=== PATIENT | female | born 1955 | race Hispanic/Latino ===

== ENCOUNTER 2017-04-15 15:05 | Emergency (ER) | payer BC ==
[2017-04-15 15:05] VITALS: BMI 22.2
[2017-04-15] MEDS ORDERED: Sodium Chloride 0.9% 1,000 ML IV STA ×2 (15:20→18:20)
--- NOTE | 2017-04-15 15:24 | ED PDOC ---
Arrival/HPI - General Historian: Patient - History of Present Illness Time/Duration: 24 hours Symptom Onset: Gradual Symptom Course: Unchanged Severity Level: Moderate Activities at Onset: Rest Context: Home - General Time Seen by Provider: 04/15/17 15:06 - History of Present Illness Narrative History of Present Illness (Text): 04/15/17 15:15 Allegra Hernandez is a 62 year old female, whose past medical history includes COPD and an esophageal ulcer, who presents to the emergency department complaining of constant nausea and vomiting since yesterday. Patient states that she has experienced associated chills, diarrhea, and dehydration. Patient notes that her vomiting may be due to the ulcer in her esophagus. Patient denies any fevers or any other complaint at this time. PMD: Dr. Webb Chief Accountant: Dr. 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-16 - Neurological Hx Neurological Disorder: No Hx Paralysis: No - HEENT Hx HEENT Disorder: No - Renal Hx Renal Disorder: Yes Hx Kidney Stones: Yes (With surgery) - Endocrine/Metabolic Hx Endocrine Disorders: No - Hematological/Oncological Hx Blood Disorders: No Hx Blood Transfusions: No Hx Blood Transfusion Reaction: No - Integumentary Hx Dermatological Disorder: No - Musculoskeletal/Rheumatological Hx Musculoskeletal Disorders: Yes (BULGING AND HERNIATED DISK LOWER BACK) - Gastrointestinal Hx Gastrointestinal Disorders: Yes Hx Gastroesophageal Reflux: Yes Other/Comment: Esophageal ulcer - Genitourinary/Gynecological Hx Genitourinary Disorders: No - Psychiatric Hx Psychophysiologic Disorder: Yes Hx Anxiety: Yes Hx Emotional Abuse: No Hx Physical Abuse: No Hx Substance Use: No - Surgical History Hx Appendectomy: Yes Hx Orthopedic Surgery: Yes (back; R knee) Other/Comment: kidney stone - Anesthesia Hx Anesthesia Reactions: Yes ("GETS SICK IF UNDER ANESTHESIA TOO LONG"VOMITING) Hx Malignant Hyperthermia: No - Suicidal Assessment Feels Threatened In Home Enviroment: No Family/Social History - Physician Review Nursing Documentation Reviewed: Yes Family/Social History: No Known Family HX Smoking Status: Light Smoker < 10 Cigarettes Daily Hx Alcohol Use: No Hx Substance Use: No Allergies/Home Meds Allergies/Adverse Reactions: Allergies Iodine and Iodide Containing Produc Allergy (Verified 04/15/17 15:12) ANAPHYLAXIS Home Medications: Home Meds Medication Instructions Recorded Confirmed Alprazolam [Xanax] 0.5 mg PO HS PRN 04/21/15 04/15/17 Pantoprazole [Protonix EC Tab] 20 mg PO DAILY 04/21/15 04/15/17 oxyCODONE [oxyCODONE Immediate 20 mg PO Q6 04/15/17 04/15/17 Release Tab] Review of Systems - Physician Review All systems were reviewed & negative as marked: Yes - Review of Systems Constitutional: Other (Chills). absent: Fevers Eyes: absent: Vision Changes ENT: absent: Hearing Changes Respiratory: absent: SOB Cardiovascular: absent: Chest Pain Gastrointestinal: Diarrhea, Nausea, Vomiting. absent: Abdominal Pain Genitourinary Female: absent: Dysuria, Urine Output Changes Musculoskeletal: absent: Arthralgias Skin: absent: Rash Neurological: absent: Headache Endocrine: absent: Diaphoresis Hemo/Lymphatic: absent: Adenopathy Physical Exam Vital Signs Reviewed: Yes Temperature: Afebrile Blood Pressure: Hypertensive Pulse: Regular Respiratory Rate: Normal Pain Distress: None Mental Status: Positive for: Alert and Oriented X 3 - Systems Exam Head: Present: Atraumatic, Normocephalic Pupils: Present: PERRL Extroacular Muscles: Present: EOMI Conjunctiva: Present: Normal Mouth: Present: Moist Mucous Membranes Neck: Present: Normal Range of Motion Respiratory/Chest: Present: Clear to Auscultation, Good Air Exchange. No: Respiratory Distress, Accessory Muscle Use Cardiovascular: Present: Regular Rate and Rhythm, Normal S1, S2. No: Murmurs Abdomen: Present: Tenderness (Mild epigastric tenderness). No: Rebound, Guarding Back: Present: Normal Inspection Upper Extremity: Present: Normal Inspection. No: Cyanosis, Edema Lower Extremity: Present: Normal Inspection. No: Edema Neurological: Present: GCS=15, CN II-XII Intact, Speech Normal Skin: Present: Warm, Dry, Normal Color. No: Rashes Psychiatric: Present: Alert, Oriented x 3, Normal Insight, Normal Concentration Medical Decision Making - Lab Interpretations I have reviewed the lab results: Yes ED Course and Treatment: 08/04/17 15:15 Impression: 62 year old female complaining of constant nausea and vomiting with associated chills, diarrhea, and dehydration for 2 days. Differential Diagnosis included but are not limited to: Plan: -- EKG -- CT abdomen and pelvis -- Urinalysis -- Labs -- Zofran and IV Fluids -- Reassess and disposition Prior Visits: Notes and results from previous visits were reviewed. Patient last seen in the ED on 10/22/15 for shortness of breath with dry cough for a few days. Patient was admitted to hospitalist care for further evaluation. Progress Notes: EKG: Ordered, reviewed, and independently interpreted the EKG. Rate : 82 BPM Rhythm : NSR Interpretation : lateral st depression, new changes no T-wave inversions, normal intervals. 04/15/17 18:56 noted leukocytosis, new lateral st depressions. cxr, abd ct neg. urine shows uti. case discussed with dr hagan. requests admission, however, pt wishs to sign out against advice. Leaving Against Medical Advice (AMA): The patient is choosing to leave against medical advice. I have personally explained to the patient that choosing to do so may result in permanent bodily harm or . I have discussed at great length that without further evaluation and monitoring there may be unforeseen circumstances and/or deterioration causing permanent bodily harm or as a result of their choice. The patient is alert, oriented, and shows the mental capacity to make clear decisions regarding the patients health care at this time. The patient continues to wish to leave against medical advice. In light of the patients decision to leave against medical advice, follow-up has been arranged and the patient is aware of the importance to following up as instructed. The patient has been advised that they should return to the emergency room immediately if they change their mind at any time, or if their condition begins to change or worsen in any way. 04/15/17 17:50 Chest X-ray: Creator : Catracho Santos MD FINDINGS: LUNGS: No active pulmonary disease. PLEURA: No significant pleural effusion identified, no pneumothorax apparent. CARDIOVASCULAR: No radiographic findings to suggest acute or significant cardiovascular disease. OSSEOUS STRUCTURES: No significant abnormalities. VISUALIZED UPPER ABDOMEN:Normal. OTHER FINDINGS: None. IMPRESSION: No active disease. 04/15/17 18:[address]: Creator : NG, Jonathon COMPARISON: 07/03/2012. FINDINGS: LOWER THORAX: Unremarkable. LIVER: Unremarkable. No gross lesion or ductal dilatation. GALLBLADDER AND BILE DUCTS:Unremarkable. PANCREAS: Unremarkable. No gross lesion or ductal dilatation. SPLEEN: Unremarkable. ADRENALS: Unremarkable. No mass. KIDNEYS AND URETERS: Unremarkable. No hydronephrosis. No solid mass. Incidental finding(s): Multiple small Nonobstructing 2 mm calculi left kidney. No evidence of obstructive uropathy. VASCULATURE: Unremarkable. No aortic aneurysm. BOWEL: Diverticulosis without an acute inflammatory component or other associated pathologic process. Questionable suture line in the sigmoid suggesting prior resection. APPENDIX: Unremarkable. Normal appendix. PERITONEUM: Unremarkable. No free fluid. No free air. LYMPH NODES: Unremarkable. No enlarged lymph nodes. BLADDER:Unremarkable. REPRODUCTIVE: Unremarkable. BONES:No acute fracture. OTHER FINDINGS: None. IMPRESSION: No acute findings related to/accounting for the clinical presentation. Additional benign and/or incidental findings described above. Limitations of the current examination: Absence of oral and intravenous contrast in the setting of leukocytosis an abdominal pain. (Frankie Cullen) - Lab Interpretations Microbiology Results: Microbiology Results 04/15/17 18:32 Urine,Clean Catch Urine Culture - Preliminary Gram Negative Barrett Lab Results: 04/15/17 15:50 04/15/17 16:30 Lab Results 04/15/17 18:30: Urine Color Yellow, Urine Appearance Cloudy, Urine pH 6.5, Ur Specific [place] >= 1.030, Urine Protein >=300 H, Urine Glucose (UA) Negative, Urine Ketones 40 H, Urine Blood Large H, Urine Nitrate Positive H, Urine Bilirubin Negative, Urine Urobilinogen 0.2, Ur Leukocyte Esterase Small H, Urine RBC 10 - 15, Urine WBC 10 - 15, Ur Epithelial Cells 4 - 5, Urine Bacteria Mod 04/15/17 16:30: Sodium 142, Potassium 3.3 L, Chloride 99, Carbon Dioxide 28, Anion Gap 18, BUN 27 H, Creatinine 0.7, Est GFR ( Amer) > 60, Est GFR ( Non-Af Amer) > 60, Random Glucose 130 H, Calcium 9.2, Magnesium 2.1, Total Bilirubin 1.2, AST 28, ALT 25, Alkaline Phosphatase 67, Lactate Dehydrogenase 508, Total Creatine Kinase 36, Troponin I 0.02 D, Total Protein 8.5 H, Albumin 4.6, Globulin 3.8, Albumin/Globulin Ratio 1.2, Lipase 44 04/15/17 15:50: PT 11.2, INR 1.04, APTT 27.8 04/15/17 15:50: WBC 20.8 H, RBC 5.45, Hgb 18.5 H* D, Hct 50.9 H, MCV 93.4, MCH 33.9, MCHC 36.3, RDW 14.5, Plt Count 311, MPV 10.3, Neutrophils % (Manual) 84 H , Band Neutrophils % 1, Lymphocytes % (Manual) 7 L, Monocytes % (Manual) 8 H, Platelet Evaluation Normal - RAD Interpretation Radiology Orders: 04/15/17 16:31 CXR [CHEST PORTABLE] [RAD] Stat 04/15/17 17:18 ABD & PELVIS W/O PO OR IV CONT [CT] Stat - Medication Orders Current Medication Orders: Discontinued Medications Sodium Chloride (Sodium Chloride 0.9%) 1,000 mls @ 999 mls/hr IV .Q1H1M STA Stop: 04/15/17 16:20 Last Admin: 04/15/17 15:52 Dose: 999 mls/hr Sodium Chloride (Sodium Chloride 0.9%) 1,000 mls @ 999 mls/hr IV .Q1H1M STA Stop: 04/15/17 19:20 Last Admin: 04/15/17 19:00 Dose: 999 mls/hr Ceftriaxone Sodium (Rocephin 1 Gram Ivpb) 1 gm in 100 mls @ 200 mls/hr IVPB STAT STA PRN Reason: Protocol Stop: 04/15/17 19:21 Last Admin: 04/15/17 19:15 Dose: 200 mls/hr Ketorolac Tromethamine (Toradol) 30 mg IVP STAT STA Stop: 04/15/17 17:15 Last Admin: 04/15/17 17:46 Dose: 30 mg Ondansetron HCl (Zofran Inj) 4 mg IVP STAT STA Stop: 04/15/17 15:21 Last Admin: 04/15/17 15:52 Dose: 4 mg - Scribe Statement The provider has reviewed the documentation as recorded by the Scribe - Scribe Statement Shruti Castellanos Provider Scribe Attestation: All medical record entries made by the Scribe were at my direction and personally dictated by me. I have reviewed the chart and agree that the record accurately reflects my personal performance of the history, physical exam, medical decision making, and the department course for this patient. I have also personally directed, reviewed, and agree with the discharge instructions and disposition. (Frankie Cullen) Disposition/Present on Arrival - Present on Arrival Any Indicators Present on Arrival: No History of DVT/PE: No History of Uncontrolled Diabetes: No Urinary Catheter: No History of Decub. Ulcer: No History Surgical Site Infection Following: None - Disposition Have Diagnosis and Disposition been Completed?: Yes Disposition Time: 18:58 - Disposition Diagnosis: UTI (urinary tract infection), Vomiting, Abnormal EKG, Leukocytosis Disposition: AGAINST MEDICAL ADVICE Condition: UNKNOWN Discharge Instructions (ExitCare): Urinary Tract Infection in Women (DC), Acute Nausea and Vomiting (ED), Leukocytosis (ED), Against Medical Advice (ED) Additional Instructions: please follow up with your doctor. return to emergency room with worsening symptoms or concerns. Prescriptions: Cefpodoxime [Vantin] 100 mg PO BID #14 tab Ondansetron ODT [Zofran ODT] 4 mg PO DAILY PRN #20 odt PRN Reason: Nausea/Vomiting Referrals: Hector Webb MD [Primary Care Provider] - Follow up with primary Forms: [employer] ([employer]) - Notes Notes (Text): 04/17/17 16:36 Urine cx shows gram neg rods colonly count >100K, sensitivity is pending. Pt called, states that she is feeling better still with nausea, however she is tolerating fluids and small amount of food. Denies any fevers, chills or vomiting. States that she started taking her antibiotic and intends to f/u with her pmd. Rx for zofran odt sent to her pharmacy. Advised to return to the ER at any time for any new or worsening symptoms. (Chauncey EARL,Dinah Eugene)
[2017-04-15 15:26] VITALS: TEMP 97.8
[2017-04-15 16:05] LABS: MEAN CELL VOLUME 93.4 fL (80.0-105.0); MEAN CORPUSCULAR HEMOGLOBIN 33.9 pg (25.0-35.0); MEAN CORPUSCULAR HGB CONC 36.3 g/dl (31.0-37.0); MEAN PLATELET VOLUME 10.3 fl (7.0-11.0); PLATELET COUNT 311 10^3/uL (120.0-450.0); RBC 5.45 10^6/uL (3.5-6.1); RED CELL DISTRIBUTION WIDTH 14.5 % (11.5-14.5); WHITE BLOOD COUNT 20.8 10^3/ul (4.5-11.0)
[2017-04-15 16:17] LABS: HEMOGLOBIN 18.5 gm/dL (12.0-16.0)
[2017-04-15 16:26] LABS: INR 1.04 (0.93-1.08)
[2017-04-15 16:43] LABS: PARTIAL THROMBOPLASTIN TIME 27.8 Seconds (23.7-30.8); PROTHROMBIN TIME 11.2 Seconds (9.9-11.8)
[2017-04-15 17:00] LABS: ALB/GLOB RATIO 1.2 (1.1-1.8); ALBUMIN 4.6 g/dL (3.0-4.8); ALT/SGPT 25 U/L (7-56); AST/SGOT 28 U/L (15-39); BLOOD UREA NITROGEN 27 mg/dL (7-21); CALCIUM 9.2 mg/dL (8.4-10.5); GFR AFRICAN-AMERICAN > 60; GFR NON-AFRICAN AMERICAN > 60; LIPASE 44 U/L (23-300); MAGNESIUM 2.1 mg/dL (1.7-2.2)
[2017-04-15 17:10] LABS: TROPONIN I 0.02 ng/mL
[2017-04-15 17:27] LABS: BAND 1 % (0-2); LYMPHOCYTE 7 % (22.0-35.0); MONOCYTE 8 % (1.0-6.0); NEUTROPHIL 84 % (50.0-70.0)
[2017-04-15 17:28] LABS: PLATELET ESTIMATE NORMAL (NORMAL)
--- NOTE | 2017-04-15 17:44 | RAD ---
HISTORY: Abdominal pain. Portable study 16:40. COMPARISON: No prior. FINDINGS: LUNGS: No active pulmonary disease. PLEURA: No significant pleural effusion identified, no pneumothorax apparent. CARDIOVASCULAR: No radiographic findings to suggest acute or significant cardiovascular disease. OSSEOUS STRUCTURES: No significant abnormalities. VISUALIZED UPPER ABDOMEN: Normal. OTHER FINDINGS: None. IMPRESSION: No active disease.
--- NOTE | 2017-04-15 18:19 | CT ---
PROCEDURE: CT Abdomen and Pelvis without intravenous contrast HISTORY: Abdominal pain, leukocytosis COMPARISON: 07/03/2012. TECHNIQUE: Unenhanced study. Neither oral nor intravenous contrast administered. Sensitivity and specificity for acute inflammatory processes limited by the absence of oral and intravenous contrast. Radiation dose: Total exam DLP = 278.91 mGy-cm. This CT exam was performed using one or more of the following dose reduction techniques: Automated exposure control, adjustment of the mA and/or kV according to patient size, and/or use of iterative reconstruction technique. FINDINGS: LOWER THORAX: Unremarkable. LIVER: Unremarkable. No gross lesion or ductal dilatation. GALLBLADDER AND BILE DUCTS: Unremarkable. PANCREAS: Unremarkable. No gross lesion or ductal dilatation. SPLEEN: Unremarkable. ADRENALS: Unremarkable. No mass. KIDNEYS AND URETERS: Unremarkable. No hydronephrosis. No solid mass. Incidental finding(s): Multiple small Nonobstructing 2 mm calculi left kidney. No evidence of obstructive uropathy. VASCULATURE: Unremarkable. No aortic aneurysm. BOWEL: Diverticulosis without an acute inflammatory component or other associated pathologic process. Questionable suture line in the sigmoid suggesting prior resection. APPENDIX: Unremarkable. Normal appendix. PERITONEUM: Unremarkable. No free fluid. No free air. LYMPH NODES: Unremarkable. No enlarged lymph nodes. BLADDER: Unremarkable. REPRODUCTIVE: Unremarkable. BONES: No acute fracture. OTHER FINDINGS: None. IMPRESSION: No acute findings related to/accounting for the clinical presentation. Additional benign and/or incidental findings described above. Limitations of the current examination: Absence of oral and intravenous contrast in the setting of leukocytosis an abdominal pain.
[2017-04-15 18:48] LABS: PH,URINE 6.5 (4.7-8.0); URINE BILIRUBIN NEGATIVE (NEGATIVE); URINE BLOOD LARGE (NEGATIVE); URINE GLUCOSE (UA) NEGATIVE (NEGATIVE); URINE NITRATE POSITIVE (NEGATIVE); URINE PROTEIN >=300 mg/dL (<30 mg/dL); URINE UROBILINOGEN 0.2 E.U./dL (<1 E.U./dL)
[2017-04-15 18:49] LABS: URINE APPEARANCE CLOUDY (CLEAR); URINE COLOR YELLOW (YELLOW)
[2017-04-15] MEDS ORDERED: cefTRIAXone 1 gm 1 GM/100 ML BAG IVPB STA (18:52)
[2017-04-15 19:08] LABS: URINE BACTERIA MOD (NEG); URINE LEUKOCYTE ESTERASE SMALL Leu/uL (NEGATIVE)
[2017-04-15 19:40] VITALS: BP 141/90; PULSE 74; RESP 20; O2SAT 96
--- NOTE | 2017-04-16 10:41 | CARD ---
APPROVED REPORT EKG Measurement Heart Lgul76ENDE VT [id number] <Conclusion> Normal sinus rhythm with sinus arrhythmia Septal infarct, age undetermined STTW changes c/w ischemia prolonged QTc
== END 2017-04-15 20:21 | disposition left against medical advice (07) ==
LOC: ED 15:05
DX: N39.0 Urinary tract infection, site not specified (principal); D72.829 Elevated white blood cell count, unspecified; R11.10 Vomiting, unspecified; R94.31 Abnormal electrocardiogram [ECG] [EKG]
CPT/HCPCS: 71010; 74176; 80053; 81001; 82550; 83615; 83690; 83735; 84484; 85025; 85610; 85730; 87086; 87181; 93005; 96361; 96365; 96375; 99285; J0696; J1885; J2405; J7040

== ENCOUNTER 2017-06-24 20:51 | Inpatient (IN) | payer BC ==
[2017-06-24 21:29] VITALS: BMI 21.9
[2017-06-24] MEDS ORDERED: Sodium Chloride 0.9% 1,000 ML IV STA (21:36)
--- NOTE | 2017-06-24 22:14 | ED PDOC ---
Arrival/HPI - General Chief Complaint: Syncope Time Seen by Provider: 06/24/17 21:11 Historian: Patient - History of Present Illness Narrative History of Present Illness (Text): 06/24/17 22:11 62 yo F whose past medical history includes COPD and esophageal ulcer, who presents to the emergency department complaining of cough/cold symptoms and SOB with coughing only which started 5 days ago, with malaise, chills, and decrease in appetite. Then 3 days ago started to develop nausea and vomiting took pepto bismol with relief, however the pantoprazole she takes regularly did not help. Patient states when she was taking a shower to get ready to come to the hospital she felt dizzy and fell onto her knees but did not actually lose consciousness. Otherwise: (-) head injury, (-) headache, (-) sore throat, (-) rash, (-) SOB on exertion, (-) chest pain, (-) diarrhea, (-) abdominal pain, (- ) flank pain, (-) urinary symptoms, (-) recent travel, (-) sick contacts. PMD Tracey Past Medical History - Provider Review Nursing Documentation Reviewed: Yes - Infectious Disease Hx of Infectious Diseases: None - Cardiac Hx Cardiac Disorders: Yes - Pulmonary Hx Respiratory Disorders: Yes Hx Bronchitis: Yes Hx Emphysema: Yes Other/Comment: MALIGNANT NEOPLASM BRONCHUS/LUNG UNSPECIFIED 08-15-16 - Neurological Hx Neurological Disorder: No Hx Paralysis: No - HEENT Hx HEENT Disorder: No - Renal Hx Renal Disorder: Yes Hx Kidney Stones: Yes (With surgery) - Endocrine/Metabolic Hx Endocrine Disorders: No - Hematological/Oncological Hx Blood Disorders: No Hx Blood Transfusions: No Hx Blood Transfusion Reaction: No - Integumentary Hx Dermatological Disorder: No - Musculoskeletal/Rheumatological Hx Musculoskeletal Disorders: Yes (BULGING AND HERNIATED DISK LOWER BACK) - Gastrointestinal Hx Gastrointestinal Disorders: Yes Hx Gastroesophageal Reflux: Yes Other/Comment: Esophageal ulcer - Genitourinary/Gynecological Hx Genitourinary Disorders: No - Psychiatric Hx Psychophysiologic Disorder: Yes Hx Anxiety: Yes Hx Emotional Abuse: No Hx Physical Abuse: No Hx Substance Use: No - Surgical History Hx Appendectomy: Yes Hx Orthopedic Surgery: Yes (back; R knee) Other/Comment: kidney stone - Anesthesia Hx Anesthesia Reactions: Yes ("GETS SICK IF UNDER ANESTHESIA TOO LONG"VOMITING) Hx Malignant Hyperthermia: No - Suicidal Assessment Feels Threatened In Home Enviroment: No Family/Social History - Physician Review Nursing Documentation Reviewed: Yes Family/Social History: No Known Family HX Smoking Status: Former Smoker Hx Alcohol Use: No Hx Substance Use: No Allergies/Home Meds Allergies/Adverse Reactions: Allergies Iodine and Iodide Containing Produc Allergy (Verified 04/15/17 15:12) ANAPHYLAXIS Home Medications: Home Meds Medication Instructions Recorded Confirmed Alprazolam [Xanax] 0.5 mg PO HS PRN 04/21/15 04/15/17 Pantoprazole [Protonix EC Tab] 20 mg PO DAILY 04/21/15 04/15/17 oxyCODONE [oxyCODONE Immediate 20 mg PO Q6 04/15/17 04/15/17 Release Tab] Review of Systems - Review of Systems Constitutional: Normal, Fatigue. absent: Weight Change, Fevers ENT: Normal, Rhinorrhea. absent: Sore Throat, Sinus Congestion Respiratory: Normal, SOB, Cough. absent: Sputum, Wheezing Cardiovascular: Normal. absent: Chest Pain, Palpitations, Edema Gastrointestinal: Normal, Nausea, Vomiting, Appetite Changes. absent: Abdominal Pain, Diarrhea Musculoskeletal: Normal. absent: Arthralgias, Back Pain, Neck Pain Skin: Normal. absent: Rash, Pruritis, Skin Lesions Neurological: Normal, Dizziness. absent: Headache, Focal Weakness Physical Exam - Physical Exam Narrative Physical Exam (Text): 06/24/17 22:20 GENERAL APPEARANCE: Patient is awake, alert, oriented x 3, in mild distress. SKIN: Warm, dry; (-) cyanosis, (-) rash. (-) Decubitus Ulcer EYES: (-) conjunctival pallor, (-) scleral icterus, (-) conjunctival hemorrhage. ENMT: Mucous membranes dry. TMs: (-) erythema. Airway patent: (-) stridor. Pharynx: (-) erythema, (-) exudate. NECK: (-) tenderness, (-) stiffness, (-) meningismus, (-) lymphadenopathy. CHEST AND RESPIRATORY: (-) accessory muscle use. Lungs: (-) rales, (-) rhonchi, (-) wheezes, (-) rub; breath sounds equal bilaterally. HEART AND CARDIOVASCULAR: (-) irregularity; (-) murmur, (-) gallop, (-) rub. ABDOMEN AND GI: Soft; (-) tenderness, (-) guarding; (-) organomegaly; (-) mass ; (-) CVA tenderness. EXTREMITIES: (-) deformity; (-) cellulitis, (-) lymphangitis; (-) subungual hemorrhage; (-) edema. NEURO AND PSYCH: Mental status as above; (-) focal findings. Vital Signs Temp Pulse Resp BP Pulse Ox 06/25/17 00:27 164/116 H 06/24/17 22:50 80 18 147/100 H 98 06/24/17 21:49 98.4 F 83 18 134/94 H 98 Medical Decision Making ED Course and Treatment: 06/24/17 22:21 62 yo F whose past medical history includes COPD and esophageal ulcer, who presents to the emergency department complaining of cough/cold symptoms and SOB with coughing only which started 5 days ago, with malaise, chills, and decrease in appetite. Previous ER visits were reviewed, patient was last seen in this emergency room on 04/15/17, was dx with UTI, vomiting, abnormal EKG, leukocytosis, patient offered admission but left AMA. Of note, patient had a cardiac cath on 10/27/15 which showed minimal mid LAD disease & normal LV systolic function, as per Dr. Prasad. DDx : r/o pneumonia, influenza, vs viral illness Plan: -- Labs -- IV fluids -- Urinalysis -- EKG -- CXR -- Protonix / Zofran -- Reassess and disposition -- Influenza 06/24/17 22:22 EKG: ST at 101 bpm, normal axis, (-) acute ST changes, as read by PA. CXR: mild venous congestion, (-) infiltrate, as read by PA. Labs reviewed : wbc is 20 with a L shift, CMP BUN of 47 with a normal creat, K 3.4. BNP 2300, was normal in prior labs. UA still pending. VBG ordered. Lasix 20 mg IV ordered. Considering pt's elevated wbc will cover prophylactically with rocephin IV and zithromax IV. Call placed to Dr. Coronel covering for Dr. Webb, agrees with plan for inpatient admission for COPD and CHF. Lactate normal. - Lab Interpretations Lab Results: 06/24/17 22:10 06/24/17 22:10 Lab Results 06/24/17 23:50: pO2 66 H, VBG pH 7.32, VBG pCO2 45.0, VBG HCO3 23.2, VBG Total CO2 24.6, VBG O2 Sat (Calc) 95.9 H, VBG Base Excess -3.1 L, VBG Potassium 17.6 H *, Glucose 81, Lactate 1.9, FiO2 21.0, Sodium 126.0 L, Chloride 107.0, Venous Blood Potassium 17.6 H* 06/24/17 22:10: Influenza Typ A,B (EIA) Negative for flu a/b 06/24/17 22:10: Sodium 144, Potassium 3.4 L, Chloride 100, Carbon Dioxide 26, Anion Gap 21 H, BUN 47 H, Creatinine 0.8, Est GFR ( Amer) > 60, Est GFR ( Non-Af Amer) > 60, Random Glucose 105, Calcium 11.5 H, Total Bilirubin 1.3, AST 34, ALT 22, Alkaline Phosphatase 80, Troponin I 0.06 D, NT-Pro-B Natriuret Pep 2330 H, Total Protein 8.2, Albumin 4.6, Globulin 3.6, Albumin/Globulin Ratio 1.3 , Lipase 116 06/24/17 22:10: WBC 20.0 H, RBC 5.51, Hgb 18.7 H*, Hct 52.3 H, MCV 94.9, MCH 33.9, MCHC 35.8, RDW 14.7 H, Plt Count 329, MPV 10.3, Gran % 85.2 H, Lymph % ( Auto) 7.2 L, Hodgeman % (Auto) 7.5 H, Eos % (Auto) 0.0 L, Baso % (Auto) 0.1, Gran # 17.01 H, Lymph # 1.4, Hodgeman # 1.5 H, Eos # 0.0, Baso # 0.01 - RAD Interpretation Radiology Orders: 06/24/17 21:37 CHEST TWO VIEWS (PA/LAT) [RAD] Stat - Medication Orders Current Medication Orders: Azithromycin (Zithromax 500mg In Ns) 500 mg in 250 mls @ 167 mls/hr IVPB STAT STA PRN Reason: Protocol Stop: 06/25/17 01:16 Last Admin: 06/25/17 00:26 Dose: 167 mls/hr eMAR Start Stop Document 06/25/17 00:26 SC (Rec: 06/25/17 00:27 SC [id number]) Intravenous Solution Start Date 06/25/17 Start Time 00:26 End Date 06/25/17 End time 01:55 Total Infusion Time 89 Discontinued Medications Furosemide (Lasix) 20 mg IVP STAT STA Stop: 06/24/17 23:41 Last Admin: 06/25/17 00:27 Dose: 20 mg MAR Blood Pressure Document 06/25/17 00:27 SC (Rec: 06/25/17 00:27 SC [id number]) Blood Pressure Blood Pressure (100/60-150/90) 164/116 IVP Administration Document 06/25/17 00:27 SC (Rec: 06/25/17 00:27 SC [id number]) Charges for Administration # of IVP Administrations 1 Sodium Chloride (Sodium Chloride 0.9%) 1,000 mls @ 1,000 mls/hr IV .Q1H STA Stop: 06/24/17 22:35 Last Admin: 06/24/17 23:00 Dose: 1,000 mls/hr eMAR Start Stop Document 06/24/17 23:00 EQ (Rec: 06/24/17 23:00 EQ [id number]) Intravenous Solution Start Date 06/24/17 Start Time 23:00 Ceftriaxone Sodium (Rocephin 1 Gram Ivpb) 1 gm in 100 mls @ 200 mls/hr IVPB STAT STA PRN Reason: Protocol Stop: 06/24/17 23:51 Ondansetron HCl (Zofran Inj) 4 mg IVP STAT STA Stop: 06/24/17 21:37 Last Admin: 06/24/17 23:00 Dose: 4 mg IVP Administration Document 06/24/17 23:00 EQ (Rec: 06/24/17 23:00 EQ [id number]) Charges for Administration # of IVP Administrations 1 Pantoprazole Sodium (Protonix Inj) 40 mg IVP STAT STA Stop: 06/24/17 21:37 Last Admin: 06/24/17 23:00 Dose: 40 mg IVP Administration Document 06/24/17 23:00 EQ (Rec: 06/24/17 23:00 EQ [id number]) Charges for Administration # of IVP Administrations 1 - PA / FORGING MACHINE HAND / Resident Statement MD/DO has reviewed & agrees with the documentation as recorded. Disposition/Present on Arrival - Present on Arrival Any Indicators Present on Arrival: No History of DVT/PE: No History of Uncontrolled Diabetes: No Urinary Catheter: No History of Decub. Ulcer: No History Surgical Site Infection Following: None - Disposition Have Diagnosis and Disposition been Completed?: Yes Diagnosis: COPD exacerbation, CHF (congestive heart failure), Leukocytosis Disposition: HOSPITALIZED Disposition Time: 23:30 Patient Plan: Admission Patient Problems: Current Active Problems Problem Status Onset CHF (congestive heart failure) Acute COPD exacerbation Acute Leukocytosis Acute Condition: STABLE
[2017-06-24 22:27] LABS: BASO # 0.01 K/mm3 (0.0-2.0); BASO % 0.1 % (0.0-3.0); GRAN # 17.01 (1.4-6.5); GRAN % 85.2 % (50.0-68.0); HEMATOCRIT 52.3 % (36.0-48.0); LYMPH # 1.4 (1.2-3.4); LYMPH % 7.2 % (22.0-35.0); MEAN CELL VOLUME 94.9 fl (80.0-105.0); MEAN CORPUSCULAR HEMOGLOBIN 33.9 pg (25.0-35.0); MEAN CORPUSCULAR HGB CONC 35.8 g/dl (31.0-37.0); MEAN PLATELET VOLUME 10.3 fl (7.0-11.0); MONO # 1.5 (0.1-0.6); MONO % 7.5 % (1.0-6.0); RED CELL DISTRIBUTION WIDTH 14.7 % (11.5-14.5)
[2017-06-24 22:38] LABS: ALB/GLOB RATIO 1.3 (1.1-1.8); ALKALINE PHOSPHATASE 80 U/L (38-126); ALT/SGPT 22 U/L (7-56); AST/SGOT 34 U/L (14-36); BILIRUBIN,TOTAL 1.3 mg/dL (0.2-1.3); BLOOD UREA NITROGEN 47 mg/dL (7-21); CALCIUM 11.5 mg/dL (8.4-10.5); CARBON DIOXIDE 26 mmol/L (21-33); CHLORIDE 100 mmol/L (98-107); GFR AFRICAN-AMERICAN > 60; GLUCOSE,RANDOM 105 mg/dL (70-110); LIPASE 116 U/L (23-300); POTASSIUM 3.4 mmol/L (3.6-5.0); SODIUM 144 mmol/L (132-148); TOTAL PROTEIN 8.2 g/dL (5.8-8.3)
[2017-06-24 22:50] LABS: TROPONIN I 0.06 ng/mL
[2017-06-24] MEDS ORDERED: cefTRIAXone 1 gm 1 GM/100 ML BAG IVPB STA (23:22)
[2017-06-24] MEDS ORDERED: Azithromycin 500MG/NS 250ml 500 MG/250 ML BAG IVPB STA (23:47)
[2017-06-25 00:20] LABS: VENOUS BLOOD GAS BASE EXCESS -3.1 mmol/L (0.0-2.0); VENOUS BLOOD PH 7.32 (7.32-7.43)
[2017-06-25] MEDS ORDERED: Potassium Chloride 20 mEq ER Tab PO STA (03:20)
--- NOTE | 2017-06-25 03:22 | CP.PCM.PN ---
Subjective - Date & Time of Evaluation Date of Evaluation: 06/25/17 Time of Evaluation: 03:21 - Subjective Subjective: Patient was seen at bedside. Asleep at this time. Received Zofran earlier. Has no nausea,vomiting , diarrhoea. Medical record was reviewed. This 62 year old woman was admitted with dyspnea, chills, anorexia, malaise, COPD exacerbation, CHF,leucocytosis, elevated HgB/HCT. Has PMH of COPD, CHF, Nephrolithiasis, GERD , herniated disc, NSTEMI, esophagitis, Objective - Vital Signs/Intake and Output Vital Signs (last 24 hours): Temp Pulse Resp BP Pulse Ox 97.7 F 98 H 20 139/92 H 99 06/25/17 02:50 06/25/17 02:50 06/25/17 02:50 06/25/17 02:50 06/25/17 01:46 - Labs Labs: Last Vital Signs 3 Temp 97.7 F 06/25/17 02:50 Pulse 98 H 06/25/17 02:50 Resp 20 06/25/17 02:50 BP 139/92 H 06/25/17 02:50 Pulse Ox 99 06/25/17 01:46 - Constitutional Appears: Well, No Acute Distress - Head Exam Head Exam: NORMAL INSPECTION - Eye Exam Additional comments: N/A. - ENT Exam ENT Exam: Normal External Ear Exam - Neck Exam Neck Exam: Normal Inspection - Respiratory Exam Respiratory Exam: NORMAL BREATHING PATTERN - Cardiovascular Exam Cardiovascular Exam: absent: JVD - GI/Abdominal Exam GI & Abdominal Exam: absent: Distended - Rectal Exam Rectal Exam: Deferred - Exam Additional comments: Deferred. - Extremities Exam Extremities Exam: Normal Inspection - Back Exam Back Exam: NORMAL INSPECTION - Neurological Exam Additional comments: Asleep. - Psychiatric Exam Additional comments: Asleep. - Skin Skin Exam: Normal Color Assessment and Plan - Assessment and Plan (Free Text) Assessment: Hypokalemia. CHF. COPD. Leukocytosis. Elevated HgB/HCT. GERD. History smoking. Plan: K-Dur 40 mEq PO stat. Continue present management as per PMD.
[2017-06-25] MEDS: oxyCODONE 20 mg Immediate Release Tab PO SCH ×3 (07:00→17:44)
[2017-06-25 08:35] LABS: ALB/GLOB RATIO 1.3 (1.1-1.8); ALKALINE PHOSPHATASE 70 U/L (38-126); ALT/SGPT 26 U/L (7-56); AST/SGOT 23 U/L (14-36); BILIRUBIN,TOTAL 1.2 mg/dL (0.2-1.3); BLOOD UREA NITROGEN 44 mg/dL (7-21); CALCIUM 10.3 mg/dL (8.4-10.5); CARBON DIOXIDE 25 mmol/L (21-33); CHLORIDE 101 mmol/L (98-107); GFR AFRICAN-AMERICAN > 60; GLUCOSE,RANDOM 94 mg/dL (70-110); POTASSIUM 3.2 mmol/L (3.6-5.0); SODIUM 143 mmol/L (132-148); TOTAL PROTEIN 7.5 g/dL (5.8-8.3)
[2017-06-25 08:46] LABS: TROPONIN I 0.06 ng/mL
[2017-06-25] MEDS ORDERED: Albuterol-Ipratrop 3 mg / 0.5 (3 ml) UD IH PRN (08:50)
--- NOTE | 2017-06-25 09:14 | RAD ---
HISTORY: pain COMPARISON: Comparison chest 04/15/2017 TECHNIQUE: Chest PA and lateral FINDINGS: LUNGS: Lung mcgill remain hyperinflated; rule out chronic changes of emphysema or COPD. No focal consolidation PLEURA: Mild biapical pleural thickening No significant pleural effusion identified. No pneumothorax apparent. CARDIOVASCULAR: Normal. OSSEOUS STRUCTURES: Mild multilevel degenerative spondylosis of the thoracic spine. Chronic anterior wedge deformities of few mid thoracic segments present VISUALIZED UPPER ABDOMEN: Normal. OTHER FINDINGS: None. IMPRESSION: Hyperinflation; rule out chronic changes of emphysema or COPD. Mild biapical pleural thickening
[2017-06-25] MEDS: Pantoprazole 20 mg EC Tab PO SCH (10:43)
--- NOTE | 2017-06-25 11:23 | CT ---
PROCEDURE: CT chest dated 06/25/2017 HISTORY: Shortness of breath. COMPARISON: Comparison made with CT again chest 08/15/2015 TECHNIQUE: Contiguous axial images were obtained through the chest without intravenous contrast enhancement. Sagittal and coronal reconstructions were performed. Radiation dose (DLP): 254.80 mGy-cm. This CT exam was performed using one or more of the following dose reduction techniques: Automated exposure control, adjustment of the mA and/or kV according to patient size, and/or use of iterative reconstruction technique. FINDINGS: LUNGS: No focal consolidation. Mild biapical pleural thickening and adjacent parenchymal scarring both lung apices. There is also small somewhat wedge-shaped area of scarring in the left upper lobe extending to the pleural surface. Minimal passive atelectasis right lung base. . MEDIASTINUM: Heart size is within range of normal. No significant pericardial effusion. Ascending thoracic aorta measures approximately 3.3 cm and descending thoracic aorta measures approximately 2.4 cm. Three-vessel arch. Pulmonary trunk measures approximately 2.5 cm. . Central airways are midline and patent. No large central endoluminal lesions are identified. Small hiatal hernia with wall thickening of the distal esophagus likely due to protrusion of gastric mucosa. The possibility of esophagitis or other intrinsic/ invasive wall lesion not excluded. Several small nonspecific mediastinal lymph nodes. Evaluation for hilar adenopathy is limited due to the lack of circulating intravenous contrast material. PLEURA: No pleural fluid. No pneumothorax. BONES: Mild multilevel degenerative spondylosis of the thoracic spine. There is a irregular osteophyte arising from the posterior disc space margin at the T11-T12 level which results in mild moderate canal compromise compression and presumed cord compression. Consider followup MRI of the thoracic spine. . UPPER ABDOMEN: Re- demonstrated is a small approximately 7.1 mm somewhat elliptical shaped focus of low attenuation superior aspect right lobe liver near the diaphragmatic dome unchanged from prior study. This could represent small hemangioma. Additionally, there is a small non obstructing calculus along the anterolateral cortex left kidney no evidence of hydronephrosis. Note also made of a cylindrical a radiopaque density (questionably calcified) which appears to be in the lumen of the distal stomach and proximal duodenum of uncertain etiology ; rule out swallowed foreign body. Clinical correlation recommended. Endoscopy followup may be prudent if clinically indicated. OTHER FINDINGS: None. IMPRESSION: No acute infiltrates. Mild biapical pleural thickening and adjacent for parenchymal scarring. Small wedge-shaped area of the suspected scarring in the superior aspect left lower lobe. No effusion or pneumothorax. Prominent osteophytic ridge disc complex T11-T12 level with mild to moderate canal compromise and presumed cord compression. MRI of thoracic spine could be performed for further evaluation. Note made of a radiopaque cylindrical density (questionably calcified) within the lumen of the distal stomach and proximal duodenum of uncertain etiology ; rule out swallowed foreign body. Endoscopy followup could be performed if further evaluation is clinically indicated. Small hiatal hernia with wall thickening of the distal esophagus likely due to protrusion of gastric mucosa. Possibility of esophagitis or other intrinsic/invasive wall lesion not excluded. Possible hemangioma superior aspect right lobe liver
[2017-06-25] MEDS: cefTRIAXone 1 gm 1 GM/100 ML BAG IVPB SCH (12:24)
[2017-06-25] MEDS: MethylPREDNISolone 40 mg Vial IVP SCH ×2 (12:25→21:53)
[2017-06-25] MEDS: Azithromycin 500MG/NS 250ml 500 MG/250 ML BAG IVPB SCH (12:48)
[2017-06-25] MEDS: Albuterol-Ipratrop 3 mg / 0.5 (3 ml) UD IH SCH ×3 (14:01→21:20)
--- NOTE | 2017-06-25 14:24 | CARD ---
APPROVED REPORT EKG Measurement Heart [id number] <Conclusion> Sinus tachycardia Septal infarct, age undetermined Abnormal ECG
[2017-06-25 14:48] LABS: URINE BILIRUBIN NEGATIVE (NEGATIVE); URINE BLOOD SMALL (NEGATIVE); URINE GLUCOSE (UA) NEGATIVE (NEGATIVE); URINE KETONE NEGATIVE (NEGATIVE); URINE LEUKOCYTE ESTERASE NEGATIVE Leu/uL (NEGATIVE); URINE PROTEIN NEGATIVE mg/dL (<30 mg/dL); URINE UROBILINOGEN 0.2 E.U./dL (<1 E.U./dL)
[2017-06-25 14:54] LABS: URINE COLOR YELLOW (YELLOW)
[2017-06-25 14:55] LABS: URINE APPEARANCE CLEAR (CLEAR)
[2017-06-25 15:05] LABS: URINE WBC 0 - 2 /hpf (0-6)
[2017-06-25 15:06] LABS: URINE BACTERIA FEW (NEG)
--- NOTE | 2017-06-26 00:01 | HP ---
HISTORY OF PRESENT ILLNESS: The patient is 62-year-old, who came to emergency room because of increasing shortness of breath, cough, congestion, fever, going on for a few days, what was last night to the point she was unable to catch a breath. She also was having fever and chills, decreased appetite for the last 3 to 5 days. She also has some nausea and vomited once or twice, took some Pepto-Bismol with no significant relief. Prior to coming to the hospital she started to feel dizzy and fell on to her knees but never lost consciousness. PAST MEDICAL HISTORY: She has significant past medical history positive with chronic obstructive pulmonary disease, esophageal ulcer, peptic ulcer disease, chronic back pain status post discectomy in 1994, history of nephrolithiasis. ALLERGIES: SHE IS ALLERGIC TO IODINE. MEDICATIONS AT HOME: She takes oxycodone 20 mg q. 6 hours, Protonix 20 mg daily, Xanax 0.5 at bedtime. SOCIAL HISTORY: Used to be heavy smoker, quit almost a year ago. Socially smokes here and there. Socially drinks here and there. REVIEW OF SYSTEMS: Significant for feeling tired, short of breath and cough. PHYSICAL EXAMINATION: GENERAL: She is sleepy but arousable. VITAL SIGNS: She is afebrile, pulse 92, respirations 20, blood pressure 143/98. LUNGS: Bilateral fair airflow. No rhonchi or crackles. HEART: S1 and S2 audible. ABDOMEN: Soft, nontender. No rebound, no guarding. NEUROLOGIC: The patient is awake, alert, oriented, communicative. EXTREMITIES: Bilateral leg, no edema. LABORATORY DATA: WBC is 20, hemoglobin 18.7, hematocrit 52.3 and platelets of 329. Chemistry; sodium 143, potassium 3.2, chloride 101, CO2 of 25, BUN 44, creatinine is 1.0 and blood sugar of 194. Urinalysis is unremarkable. CT scan of the chest done. Shows no acute infiltrate, mild biapical pleural thickening, small wedge shape area of scarring in the superior aspect of the lower lobe. ASSESSMENT: 1. Chronic obstructive pulmonary disease exacerbation. 2. Hypertension. 3. Status post cardiac catheterization in 10/[address] Kory Dutta. This shows minimal left anterior descending disease and normal left ventricular function. 4. Chronic degenerative disk disease. PLAN: We will continue the patient on nebulizer treatment. Her potassium has been supplemented. There is no evidence of congestive heart failure. I will discontinue IV Lasix, we will continue her on regular analgesic that she takes at home. Continue her on Rocephin. She is on methylprednisolone, we will continue that. She is on Zithromax, we will continue on Zithromax also. We will reevaluate the patient in a.m. make further recommendation. Vinod Coronel MD
[2017-06-26] MEDS: oxyCODONE 20 mg Immediate Release Tab PO SCH ×4 (00:03→17:45)
[2017-06-26] MEDS: Albuterol-Ipratrop 3 mg / 0.5 (3 ml) UD IH SCH ×4 (02:58→21:50)
[2017-06-26] MEDS: MethylPREDNISolone 40 mg Vial IVP SCH ×2 (09:17→21:52)
[2017-06-26] MEDS: cefTRIAXone 1 gm 1 GM/100 ML BAG IVPB SCH (09:18)
[2017-06-26] MEDS: Azithromycin 500MG/NS 250ml 500 MG/250 ML BAG IVPB SCH (09:19)
[2017-06-26] MEDS: Pantoprazole 20 mg EC Tab PO SCH (09:19)
--- NOTE | 2017-06-26 09:55 | CON ---
DATE: 06/26/2017 CONSULTATION INDICATIONS: Shortness of breath, vomiting, history of coronary artery disease. HISTORY OF PRESENT ILLNESS: This is a 62-year-old woman, known to us, admitted yesterday with several days of shortness of breath, cough beginning with URI type symptoms. She also developed nausea and vomiting and retching. She came to the emergency room and was admitted to 5R. This morning, she has nausea and is retching and vomiting. There is no chest pain, orthopnea, PND, syncope, presyncope, dizziness, edema or claudication. There is no hemoptysis, diarrhea, constipation or melena. PAST MEDICAL HISTORY: Notable for coronary artery disease. She underwent a cardiac catheterization in 10/2015; this demonstrated minimal LAD disease and normal LV function. She has severe COPD and is a current smoker. She has GERD with esophageal ulcerations. She has had back surgery because of discogenic disease. She has had renal stones and appendectomy. There is no history of rheumatic fever, congestive heart failure, myocardial infarction, arrhythmia, stroke, TIA or gout. MEDICATIONS AT HOME: Include Protonix, Vantin, Xanax, Zofran and oxycodone. ALLERGIES: SHE NOTES AN ALLERGY TO IODINE AND IV CONTRAST. SOCIAL HISTORY: She lives at home. She is . She was a smoker; apparently, she has stopped smoking within the last year. She uses alcohol in frequent occasions. FAMILY HISTORY: Noncontributory. REVIEW OF SYSTEMS: Ten-point review of systems is otherwise unremarkable except as noted above. PHYSICAL EXAMINATION: GENERAL: She is a well-developed woman with intermittent retching on 5R. VITAL SIGNS: She is afebrile. Pulse 91, blood pressure 146/93, respirations 19 to 20 and O2 saturation 93% to 96% on room air. HEENT EXAM: Reveals no neck vein distention, thyromegaly or carotid bruits. Mucous membranes moist. Conjunctivae pink. NECK: Supple. LUNGS: Lee clear throughout. EXAMINATION OF THE HEART: Reveals normal first and second heart sounds. No murmur, gallop, rub or click on limited exam. ABDOMEN: Soft. Bowel sounds present. No mass, organomegaly, tenderness, rebound or guarding. No CVA tenderness. No palpable abdominal aortic aneurysm. EXTREMITIES EXAM: Revealed no cyanosis, clubbing or edema. NEUROLOGICALLY: She is awake, alert and oriented. SKIN: Warm and dry. No rash or cellulitis. PSYCHIATRIC: Normal as to mood and affect. LABORATORY IMAGING: A chest x-ray revealed hyperinflation, consistent with emphysema or COPD, biapical pleural thickening. EKG demonstrates regular sinus rhythm, poor R-wave progression, possible septal infarct and nonspecific ST-wave changes; no change from previous EKG. CT scan of the chest reveals no acute infiltrates, mild biapical pleural thickening and adjacent parenchymal scarring and small wedge-shaped area of suspected scarring in the superior aspect of the left lower lobe. White count 20,000; hemoglobin 18.7; hematocrit 52.3; platelet count normal. Blood gases noted. Electrolytes noted. Potassium is 3.4, repeat 3.2. BUN 44, creatinine 1.0. Blood sugar is normal. LFTs unremarkable. Two troponins negative. BNP 2330. Lipase 116. Urinalysis noted. IMPRESSION: Allegra Hernandez came in with shortness of breath and features of upper respiratory tract infection, developed retching, nausea and vomiting with a history of gastroesophageal reflux disease and esophageal ulcerations. She has a history of mild coronary artery disease based on a catheterization in 10/2015 with normal left ventricular function. At this time, she should undergo gastroenterology evaluation. Potassium is being replaced. We will monitor stool for occult blood, check amylase and lipase. She is getting Zofran, Protonix and antibiotics. I will review her old records. I will follow along with you. I will repeat her EKG and troponin today. Dylan Gonsalez MD [facility]PITALChavez
[2017-06-26 10:19] LABS: TROPONIN I 0.02 ng/mL
--- NOTE | 2017-06-26 20:11 | PN ---
DATE: SUBJECTIVE: The patient is a 62-year-old. The patient is lying in bed, seems to bed comfortable. Complain of having nausea. She states she drank too much water this morning and later on felt nauseous, but seems to doing well. PHYSICAL EXAMINATION: VITAL SIGNS: She is afebrile, pulse 91, respirations 19, and blood pressure 146/93. LUNGS: Bilateral few expiratory rhonchi. HEART: S1 and S2, audible. ABDOMEN: Soft and nontender. No rebound and no guarding. NEUROLOGIC: The patient is awake, alert, oriented and communicative. IMAGING: CT scan of the chest was done. There is no definite pneumonia. ASSESSMENT: 1. Chronic obstructive pulmonary disease exacerbation. 2. Bronchospasm. 3. History of chronic back pain. 4. Polycythemia secondary to chronic smoking. PLAN: Continue on nebulizer treatment. She is on PPI. She is on as usual analgesics. She is on Rocephin and prednisone. Followup on CBC and CMP in a.m. Vinod Coronel MD
[2017-06-26] MEDS: oxyCODONE 20 mg Immediate Release Tab PO PRN (21:51)
[2017-06-27] MEDS: Albuterol-Ipratrop 3 mg / 0.5 (3 ml) UD IH SCH ×4 (02:13→19:54)
[2017-06-27] MEDS ORDERED: Alum-Mag Hydrox-Simethicone Susp (30 mL) PO ONE (03:59)
--- NOTE | 2017-06-27 06:15 | CP.PCM.PN ---
Subjective - Date & Time of Evaluation Date of Evaluation: 06/27/17 Time of Evaluation: 06:15 - Subjective Subjective: Patient had heart burn. Had no other complaints. 62 year old woman was admitted with sob, chills, anorexia, malaise, COPD exacerbation, CHF,leucocytosis, elevated HgB/HCT. PMH of COPD, CHF, Nephrolithiasis, GERD , herniated disc, NSTEMI, esophagitis, Objective - Vital Signs/Intake and Output Vital Signs (last 24 hours): Temp Pulse Resp BP Pulse Ox 98 F 90 20 136/89 95 06/26/17 16:00 06/26/17 16:00 06/26/17 16:00 06/26/17 16:00 06/26/17 16:00 Intake and Output: 06/26/17 06/27/17 18:59 06:59 Intake Total 960 Balance 960 - Medications Medications: Current Medications Acetaminophen (Tylenol 325mg Tab) 650 mg PO Q4H PRN PRN Reason: Fever >100.4 F Albuterol/Ipratropium (Duoneb 3 Mg/0.5 Mg (3 Ml) Ud) 3 ml IH Q2H PRN PRN Reason: Shortness of Breath Albuterol/Ipratropium (Duoneb 3 Mg/0.5 Mg (3 Ml) Ud) 3 ml IH [id number] [facility] Last Admin: 06/27/17 02:13 Dose: Not Given Alprazolam (Xanax) 0.5 mg PO HS PRN; Protocol PRN Reason: Anxiety Last Admin: 06/27/17 00:30 Dose: 0.5 mg Aspirin (Ecotrin) 81 mg PO DAILY [facility] Azithromycin (Zithromax 500mg In Ns) 500 mg in 250 mls @ 167 mls/hr IVPB DAILY [facility] PRN Reason: Protocol Last Admin: 06/26/17 09:19 Dose: 167 mls/hr Ceftriaxone Sodium (Rocephin 1 Gram Ivpb) 1 gm in 100 mls @ 100 mls/hr IVPB DAILY [facility] PRN Reason: Protocol Last Admin: 06/26/17 09:18 Dose: 100 mls/hr Methylprednisolone (Solu-Medrol) 40 mg IVP Q12 [facility] Last Admin: 06/26/17 21:52 Dose: 40 mg Ondansetron HCl (Zofran Odt) 4 mg PO Q6H PRN PRN Reason: Nausea/Vomiting Last Admin: 06/26/17 22:00 Dose: 4 mg Oxycodone HCl (Oxycodone Immediate Release Tab) 20 mg PO Q6H PRN PRN Reason: Pain, moderate (4-7) Last Admin: 06/26/17 21:51 Dose: 20 mg Pantoprazole Sodium (Protonix Ec Tab) 20 mg PO DAILY [facility] Last Admin: 06/26/17 09:19 Dose: 20 mg - Labs Labs: 06/25/17 08:00 Micro Results 06/24/17 22:10 Blood Blood Culture - Preliminary NO GROWTH AFTER 48 HOURS 06/24/17 21:55 Blood Blood Culture - Preliminary NO GROWTH AFTER 48 HOURS 06/24/17 23:50 Urine Urine Culture - Preliminary Gram Negative Barrett Most Recent Lab Values WBC 20.0 10^3/ul (4.5-11.0) H 06/24/17 22:10 RBC 5.51 10^6/uL (3.5-6.1) 06/24/17 22:10 Hgb 18.7 g/dL (12.0-16.0) H* 06/24/17 22:10 Hct 52.3 % (36.0-48.0) H 06/24/17 22:10 MCV 94.9 fl (80.0-105.0) 06/24/17 22:10 MCH 33.9 pg (25.0-35.0) 06/24/17 22:10 MCHC 35.8 g/dl (31.0-37.0) 06/24/17 22:10 RDW 14.7 % (11.5-14.5) H 06/24/17 22:10 Plt Count 329 10^3/uL (120.0-450.0) 06/24/17 22:10 MPV 10.3 fl (7.0-11.0) 06/24/17 22:10 Gran % 85.2 % (50.0-68.0) H 06/24/17 22:10 Lymph % (Auto) 7.2 % (22.0-35.0) L 06/24/17 22:10 [place] % (Auto) 7.5 % (1.0-6.0) H 06/24/17 22:10 Eos % (Auto) 0.0 % (1.5-5.0) L 06/24/17 22:10 Baso % (Auto) 0.1 % (0.0-3.0) 06/24/17 22:10 Gran # 17.01 (1.4-6.5) H 06/24/17 22:10 Lymph # 1.4 (1.2-3.4) 06/24/17 22:10 [place] # 1.5 (0.1-0.6) H 06/24/17 22:10 Eos # 0.0 (0.0-0.7) 06/24/17 22:10 Baso # 0.01 K/mm3 (0.0-2.0) 06/24/17 22:10 pO2 66 mm/Hg (30-55) H 06/24/17 23:50 VBG pH 7.32 (7.32-7.43) 06/24/17 23:50 VBG pCO2 45.0 (40-60) 06/24/17 23:50 VBG HCO3 23.2 mmol/l (21-28) 06/24/17 23:50 VBG Total CO2 24.6 mmol.L (22-28) 06/24/17 23:50 VBG O2 Sat (Calc) 95.9 % (40-65) H 06/24/17 23:50 VBG Base Excess -3.1 mmol/L (0.0-2.0) L 06/24/17 23:50 VBG Potassium 17.6 mmol/L (3.6-5.2) H* 06/24/17 23:50 Sodium 126.0 mmol/L (132-148) L 06/24/17 23:50 Chloride 107.0 mmol/L (98-107) 06/24/17 23:50 Glucose 81 mg/dl (65-105) 06/24/17 23:50 Lactate 1.9 mmol/L (0.7-2.1) 06/24/17 23:50 FiO2 21.0 % 06/24/17 23:50 Sodium 143 mmol/L (132-148) 06/25/17 08:00 Potassium 3.2 mmol/L (3.6-5.0) L 06/25/17 08:00 Chloride 101 mmol/L (98-107) 06/25/17 08:00 Carbon Dioxide 25 mmol/L (21-33) 06/25/17 08:00 Anion Gap 20 (10-20) 06/25/17 08:00 BUN 44 mg/dL (7-21) H 06/25/17 08:00 Creatinine 1.0 mg/dL (0.7-1.2) 06/25/17 08:00 Est GFR ( Amer) > 60 06/25/17 08:00 Est GFR (Non-Af Amer) 56 06/25/17 08:00 Random Glucose 94 mg/dL (70-110) 06/25/17 08:00 Calcium 10.3 mg/dL (8.4-10.5) 06/25/17 08:00 Total Bilirubin 1.2 mg/dL (0.2-1.3) 06/25/17 08:00 AST 23 U/L (14-36) 06/25/17 08:00 ALT 26 U/L (7-56) 06/25/17 08:00 Alkaline Phosphatase 70 U/L (38-126) 06/25/17 08:00 Troponin I 0.02 ng/mL D 06/26/17 09:50 NT-Pro-B Natriuret Pep 2330 pg/mL (0-450) H 06/24/17 22:10 Total Protein 7.5 g/dL (5.8-8.3) 06/25/17 08:00 Albumin 4.2 g/dL (3.0-4.8) 06/25/17 08:00 Globulin 3.3 gm/dL 06/25/17 08:00 Albumin/Globulin Ratio 1.3 (1.1-1.8) 06/25/17 08:00 Amylase 66 U/L (35-125) 06/26/17 09:50 Lipase 107 U/L (23-300) 06/26/17 09:50 Venous Blood Potassium 17.6 mmol/L (3.6-5.2) H* 06/24/17 23:50 Urine Color Yellow (YELLOW) 06/25/17 14:40 Urine Appearance Clear (CLEAR) 06/25/17 14:40 Urine pH 6.0 (4.7-8.0) 06/25/17 14:40 Ur Specific [place] <= 1.005 (1.005-1.035) 06/25/17 14:40 Urine Protein Negative mg/dL (<30 mg/dL) 06/25/17 14:40 Urine Glucose (UA) Negative mg/dL (NEGATIVE) 06/25/17 14:40 Urine Ketones Negative mg/dL (NEGATIVE) 06/25/17 14:40 Urine Blood Small (NEGATIVE) H 06/25/17 14:40 Urine Nitrate Negative (NEGATIVE) 06/25/17 14:40 Urine Bilirubin Negative (NEGATIVE) 06/25/17 14:40 Urine Urobilinogen 0.2 E.U./dL (<1 E.U./dL) 06/25/17 14:40 Ur Leukocyte Esterase Negative Jose/uL (NEGATIVE) 06/25/17 14:40 Urine RBC 2 - 5 /hpf (0-2) 06/25/17 14:40 Urine WBC 0 - 2 /hpf (0-6) 06/25/17 14:40 Ur Epithelial Cells 1 - 3 /hpf (0-5) 06/25/17 14:40 Urine Bacteria Few (NEG) 06/25/17 14:40 Influenza Typ A,B (EIA) Negative for flu a/b (NEGATIVE) 06/24/17 22:10 - Constitutional Appears: Well, No Acute Distress - Head Exam Head Exam: ATRAUMATIC, NORMAL INSPECTION, NORMOCEPHALIC - Eye Exam Eye Exam: Normal appearance - ENT Exam ENT Exam: Normal External Ear Exam - Neck Exam Neck Exam: Normal Inspection - Respiratory Exam Respiratory Exam: NORMAL BREATHING PATTERN - Cardiovascular Exam Cardiovascular Exam: absent: JVD - GI/Abdominal Exam GI & Abdominal Exam: absent: Distended - Rectal Exam Rectal Exam: Deferred - Exam Additional comments: Deferred. - Extremities Exam Extremities Exam: Normal Inspection - Back Exam Back Exam: NORMAL INSPECTION - Neurological Exam Additional comments: Resting. - Psychiatric Exam Additional comments: Resting. - Skin Skin Exam: Normal Color Assessment and Plan - Assessment and Plan (Free Text) Assessment: Heart burn. CHF. COPD. GERD. NSTEMI. Esophagitis. Plan: Mylanta 30 CC PO x1. Continue present management.
[2017-06-27 07:05] LABS: GRAN # 9.04 (1.4-6.5); HEMATOCRIT 43.4 % (36.0-48.0); LYMPH # 1.3 (1.2-3.4); LYMPH % 11.9 % (22.0-35.0); MEAN CELL VOLUME 95.6 fl (80.0-105.0); MEAN CORPUSCULAR HEMOGLOBIN 33.3 pg (25.0-35.0); MEAN CORPUSCULAR HGB CONC 34.8 g/dl (31.0-37.0); MEAN PLATELET VOLUME 10.3 fl (7.0-11.0); MONO # 0.7 (0.1-0.6); MONO % 6.1 % (1.0-6.0); RED CELL DISTRIBUTION WIDTH 13.7 % (11.5-14.5)
[2017-06-27 07:24] LABS: ALB/GLOB RATIO 1.4 (1.1-1.8); ALKALINE PHOSPHATASE 54 U/L (38-126); ALT/SGPT 28 U/L (7-56); AST/SGOT 17 U/L (14-36); BLOOD UREA NITROGEN 23 mg/dL (7-21); CALCIUM 9.4 mg/dL (8.4-10.5); CARBON DIOXIDE 33 mmol/L (21-33); CHLORIDE 98 mmol/L (98-107); GFR AFRICAN-AMERICAN > 60; GLUCOSE,RANDOM 130 mg/dL (70-110); POTASSIUM 3.7 mmol/L (3.6-5.0); SODIUM 138 mmol/L (132-148); TOTAL PROTEIN 6.5 g/dL (5.8-8.3)
[2017-06-27] MEDS: oxyCODONE 20 mg Immediate Release Tab PO PRN ×3 (07:53→21:50)
--- NOTE | 2017-06-27 08:25 | CP.PCM.PN ---
Subjective - Date & Time of Evaluation Date of Evaluation: 06/27/17 Time of Evaluation: 07:00 - Subjective Subjective: Stable on 5R. She feels better. No CP or SOB. No retching/vomiting this AM. V/S noted. PE: Lungs: rhonchi Cor.: S1S2 Abd.: soft Ext.: no edema Neuro.: alert Labs noted. trops neg x 3 BC x2 NG at 48 hrs. Urine C+S: + GNR Objective - Vital Signs/Intake and Output Vital Signs (last 24 hours): Temp Pulse Resp BP Pulse Ox 98 F 90 20 136/89 95 06/26/17 16:00 06/26/17 16:00 06/26/17 16:00 06/26/17 16:00 06/26/17 16:00 - Medications Medications: Current Medications Acetaminophen (Tylenol 325mg Tab) 650 mg PO Q4H PRN PRN Reason: Fever >100.4 F Albuterol/Ipratropium (Duoneb 3 Mg/0.5 Mg (3 Ml) Ud) 3 ml IH Q2H PRN PRN Reason: Shortness of Breath Albuterol/Ipratropium (Duoneb 3 Mg/0.5 Mg (3 Ml) Ud) 3 ml IH [id number] [facility] Last Admin: 06/27/17 07:33 Dose: 3 ml Alprazolam (Xanax) 0.5 mg PO HS PRN; Protocol PRN Reason: Anxiety Last Admin: 06/27/17 00:30 Dose: 0.5 mg Aspirin (Ecotrin) 81 mg PO DAILY [facility] Azithromycin (Zithromax 500mg In Ns) 500 mg in 250 mls @ 167 mls/hr IVPB DAILY [facility] PRN Reason: Protocol Last Admin: 06/26/17 09:19 Dose: 167 mls/hr Ceftriaxone Sodium (Rocephin 1 Gram Ivpb) 1 gm in 100 mls @ 100 mls/hr IVPB DAILY [facility] PRN Reason: Protocol Last Admin: 06/26/17 09:18 Dose: 100 mls/hr Methylprednisolone (Solu-Medrol) 40 mg IVP Q12 [facility] Last Admin: 06/26/17 21:52 Dose: 40 mg Ondansetron HCl (Zofran Odt) 4 mg PO Q6H PRN PRN Reason: Nausea/Vomiting Last Admin: 06/26/17 22:00 Dose: 4 mg Oxycodone HCl (Oxycodone Immediate Release Tab) 20 mg PO Q6H PRN PRN Reason: Pain, moderate (4-7) Last Admin: 06/27/17 07:53 Dose: 20 mg Pantoprazole Sodium (Protonix Ec Tab) 20 mg PO DAILY [facility] Last Admin: 06/26/17 09:19 Dose: 20 mg - Labs Labs: 06/27/17 06:51 06/27/17 06:47 Assessment and Plan - Assessment and Plan (Free Text) Assessment: SOB/Cough/URI initoally Nausea/Vomiting H/O mild CAD on cath 10/28 COPD/Smoker GERD/Esophageal Ulcerations Back surgery Renal Stones Appendectomy Plan: As per [facility] Rx. for UTI OOB as gagandeep. Check ECG this AM-pending
--- NOTE | 2017-06-27 09:55 | CP.PCM.CON ---
<Sravani Cox - Last Filed: 06/27/17 14:17> History of Present Illness - History of Present Illness History of Present Illness: Neurology Consult Note for Seth Walker PGY2 Reason for consult: CT results This is a 62Y F with PMH CAD s/p stents, COPD, esophageal ulcers who was admitted for COPD exacerbation. Patient had a chest CT on 06/25/17 which showed T11-T12 mild spinal cord compression. Patient was asymptomatic at the time. According to the documentation, no physician was notified of these results. Dr. Quintanilla was not aware of the results. Patient denies having any numbness/tingling , trauma, weakness, urinary retention/incontinence, bowel retention or incontinence. She reports she did have laminectomy of her lower lumbar spine in 1994. Patient admits to having some SOB, but denies CP, n/v/d, numbness/tingling , fever or chills. PMH: CAD, COPD, esophageal ulcers, peptic ulcer disease, kidney stones PSH: laminectomy Home meds: As per NOV ALL: Iodine SH: Former heavy smoker, still smokes occasionally, social drinker, denies drug use. FH: Osteoporosis Review of Systems - Review of Systems All systems: reviewed and no additional remarkable complaints except Review of Systems: + SOB Past Patient History - Infectious Disease Hx of Infectious Diseases: None - Past Social History Smoking Status: Heavy Smoker > 10 Cigarettes Daily - CARDIAC Hx Cardiac Disorders: Yes - PULMONARY Hx Respiratory Disorders: Yes Hx Bronchitis: Yes Hx Emphysema: Yes - NEUROLOGICAL Hx Neurological Disorder: No - HEENT Hx HEENT Problems: No - RENAL Hx Chronic Kidney Disease: Yes Hx Kidney Stones: Yes (With surgery) - ENDOCRINE/METABOLIC Hx Endocrine Disorders: No - HEMATOLOGICAL/ONCOLOGICAL Hx Blood Disorders: No - INTEGUMENTARY Hx Dermatological Problems: No - MUSCULOSKELETAL/RHEUMATOLOGICAL Hx Musculoskeletal Disorders: Yes (BULGING AND HERNIATED DISK LOWER BACK) Hx Falls: Yes - GASTROINTESTINAL Hx Gastrointestinal Disorders: Yes Hx Gastroesophageal Reflux: Yes Other/Comment: Esophageal ulcer - GENITOURINARY/GYNECOLOGICAL Hx Genitourinary Disorders: No - PSYCHIATRIC Hx Psychophysiologic Disorder: Yes Hx Anxiety: Yes Hx Emotional Abuse: No Hx Physical Abuse: No - SURGICAL HISTORY Hx Appendectomy: Yes Hx Orthopedic Surgery: Yes (back; R knee) Other/Comment: kidney stone - ANESTHESIA Hx Anesthesia Reactions: Yes ("GETS SICK IF UNDER ANESTHESIA TOO LONG"VOMITING) Hx Malignant Hyperthermia: No Meds Allergies/Adverse Reactions: Allergies Allergy/AdvReac Type Severity Reaction Status Date / Time Iodine and Iodide Containing Allergy ANAPHYLAXIS Verified 04/15/17 15:12 Produc - Medications Medications: Current Medications Acetaminophen (Tylenol 325mg Tab) 650 mg PO Q4H PRN PRN Reason: Fever >100.4 F Albuterol/Ipratropium (Duoneb 3 Mg/0.5 Mg (3 Ml) Ud) 3 ml IH Q2H PRN PRN Reason: Shortness of Breath Albuterol/Ipratropium (Duoneb 3 Mg/0.5 Mg (3 Ml) Ud) 3 ml IH [id number] [facility] Last Admin: 06/27/17 07:33 Dose: 3 ml Alprazolam (Xanax) 0.5 mg PO HS PRN; Protocol PRN Reason: Anxiety Last Admin: 06/27/17 00:30 Dose: 0.5 mg Aspirin (Ecotrin) 81 mg PO DAILY [facility] Azithromycin (Zithromax 500mg In Ns) 500 mg in 250 mls @ 167 mls/hr IVPB DAILY [facility] PRN Reason: Protocol Last Admin: 06/26/17 09:19 Dose: 167 mls/hr Ceftriaxone Sodium (Rocephin 1 Gram Ivpb) 1 gm in 100 mls @ 100 mls/hr IVPB DAILY [facility] PRN Reason: Protocol Last Admin: 06/26/17 09:18 Dose: 100 mls/hr Methylprednisolone (Solu-Medrol) 40 mg IVP Q12 [facility] Last Admin: 06/26/17 21:52 Dose: 40 mg Ondansetron HCl (Zofran Odt) 4 mg PO Q6H PRN PRN Reason: Nausea/Vomiting Last Admin: 06/26/17 22:00 Dose: 4 mg Oxycodone HCl (Oxycodone Immediate Release Tab) 20 mg PO Q6H PRN PRN Reason: Pain, moderate (4-7) Last Admin: 06/27/17 07:53 Dose: 20 mg Pantoprazole Sodium (Protonix Ec Tab) 20 mg PO DAILY [facility] Last Admin: 06/26/17 09:19 Dose: 20 mg Physical Exam - Constitutional Appears: No Acute Distress - Head Exam Head Exam: ATRAUMATIC, NORMAL INSPECTION, NORMOCEPHALIC - Eye Exam Eye Exam: Normal appearance, PERRL Pupil Exam: NORMAL ACCOMODATION, PERRL - ENT Exam ENT Exam: Mucous Membranes Moist - Respiratory Exam Respiratory Exam: Clear to Auscultation Bilateral, NORMAL BREATHING PATTERN. absent: Rales, Rhonchi, Wheezes, Stridor - Cardiovascular Exam Cardiovascular Exam: REGULAR RHYTHM, +S1, +S2. absent: Gallop, Rubs, Systolic Murmur - GI/Abdominal Exam GI & Abdominal Exam: Normal Bowel Sounds, Soft. absent: Guarding, Mass, Rebound , Tenderness - Extremities Exam Extremities exam: Positive for: normal inspection. Negative for: calf tenderness, pedal edema - Neurological Exam Neurological exam: Alert, CN II-XII Intact, Normal Gait, Oriented x3 Additional comments: + 1 patellar reflexes bilaterally. No focal neurological deficits noted. 5/5 strength in both upper and lower extremities bilaterally. - Psychiatric Exam Psychiatric exam: Normal Affect, Normal Mood - Skin Skin Exam: Dry, Normal Color, Warm Results - Vital Signs Recent Vital Signs: Last Vital Signs Temp 98.7 F 06/27/17 08:19 Pulse 84 06/27/17 08:19 Resp 20 06/27/17 08:19 BP 142/93 H 06/27/17 08:19 Pulse Ox 92 L 06/27/17 08:19 - Labs Result Diagrams: 06/27/17 06:51 06/27/17 06:47 Labs: Laboratory Results - last 24 hr 06/26/17 06/27/17 06/27/17 09:50 06:47 06:51 WBC 11.0 D RBC 4.54 Hgb 15.1 D Hct 43.4 MCV 95.6 MCH 33.3 MCHC 34.8 RDW 13.7 Plt Count 298 MPV 10.3 Gran % 82.0 H Lymph % (Auto) 11.9 L [place] % (Auto) 6.1 H Eos % (Auto) 0.0 L Baso % (Auto) 0.0 Gran # 9.04 H Lymph # 1.3 [place] # 0.7 H Eos # 0.0 Baso # 0.00 Sodium 138 Potassium 3.7 Chloride 98 Carbon Dioxide 33 Anion Gap 11 BUN 23 H Creatinine 0.6 L Est GFR ( Amer) > 60 Est GFR (Non-Af Amer) > 60 Random Glucose 130 H Calcium 9.4 Total Bilirubin 1.0 AST 17 ALT 28 Alkaline Phosphatase 54 Troponin I 0.02 D Total Protein 6.5 Albumin 3.7 Globulin 2.7 Albumin/Globulin Ratio 1.4 Amylase 66 Lipase 107 Assessment & Plan - Assessment and Plan (Free Text) Assessment: This is a 62Y F with PMH CAD s/p stents, COPD, esophageal ulcers who was admitted for COPD exacerbation. Patient had a chest CT on 06/25/17 which showed T11-T12 mild spinal cord compression. According to the documentation, no physician was notified of these results. No focal neurological deficits noted at this time. Plan: - Will obtain MRI of thoracic spine - Continue physical therapy - Continue Solumedrol 40q12 for COPD exacerbation Case seen, discussed and reviewed with Dr. Quintanilla. Seth Cox PGY2 - Date & Time Date: 06/27/17 Time: 14:30 <Aurelio Quintanilla - Last Filed: 06/28/17 10:54> Meds - Medications Medications: Current Medications Acetaminophen (Tylenol 325mg Tab) 650 mg PO Q4H PRN PRN Reason: Fever >100.4 F Albuterol/Ipratropium (Duoneb 3 Mg/0.5 Mg (3 Ml) Ud) 3 ml IH Q2H PRN PRN Reason: Shortness of Breath Albuterol/Ipratropium (Duoneb 3 Mg/0.5 Mg (3 Ml) Ud) 3 ml IH [id number] [facility] Last Admin: 06/28/17 07:26 Dose: Not Given Alprazolam (Xanax) 0.5 mg PO HS PRN; Protocol PRN Reason: Anxiety Last Admin: 06/27/17 22:37 Dose: 0.5 mg Aspirin (Ecotrin) 81 mg PO DAILY [facility] Last Admin: 06/28/17 09:47 Dose: 81 mg Cefpodoxime Proxetil (Vantin) 100 mg PO Q12 [facility] PRN Reason: Protocol Last Admin: 06/28/17 09:47 Dose: 100 mg Ondansetron HCl (Zofran Odt) 4 mg PO Q6H PRN PRN Reason: Nausea/Vomiting Last Admin: 06/28/17 04:00 Dose: 4 mg Oxycodone HCl (Oxycodone Immediate Release Tab) 20 mg PO Q6H PRN PRN Reason: Pain, moderate (4-7) Last Admin: 06/27/17 21:50 Dose: 20 mg Pantoprazole Sodium (Protonix Ec Tab) 20 mg PO DAILY [facility] Last Admin: 06/28/17 09:47 Dose: 20 mg Results - Vital Signs Recent Vital Signs: Last Vital Signs Temp 98.5 F 06/28/17 08:03 Pulse 79 06/28/17 08:03 Resp 18 06/28/17 08:03 BP 154/86 H 06/28/17 08:03 Pulse Ox 94 L 06/28/17 08:03 - Labs Result Diagrams: 06/27/17 06:51 06/27/17 06:47 Attending/Attestation - Attestation I have personally seen and examined this patient.: Yes I have fully participated in the care of the patient.: Yes I have reviewed all pertinent clinical information: Yes
[2017-06-27] MEDS: cefTRIAXone 1 gm 1 GM/100 ML BAG IVPB SCH (10:02)
[2017-06-27] MEDS: MethylPREDNISolone 40 mg Vial IVP SCH ×2 (10:02→21:49)
[2017-06-27] MEDS: Pantoprazole 20 mg EC Tab PO SCH (10:04)
[2017-06-27] MEDS: Azithromycin 500MG/NS 250ml 500 MG/250 ML BAG IVPB SCH (12:10)
--- NOTE | 2017-06-27 12:13 | CP.PCM.PN ---
<Esthela Navarro - Last Filed: 06/27/17 13:44> Subjective - Date & Time of Evaluation Date of Evaluation: 06/27/17 Time of Evaluation: 12:13 - Subjective Subjective: PGY-[address] Webb Patient seen and examined at bedside. No acute distress. Patient has no complaints. She is received breathing treatment the AM. She states her sob has improved and is feeling better. Patient denies chest pain, sob, fever, chills, abd pain, n/v/d/c. Patient is tolerating diet. Objective - Vital Signs/Intake and Output Vital Signs (last 24 hours): Temp Pulse Resp BP Pulse Ox 98.7 F 84 20 142/93 H 92 L 06/27/17 08:19 06/27/17 08:19 06/27/17 08:19 06/27/17 08:19 06/27/17 08:19 Intake and Output: 06/27/17 06/27/17 06:59 18:59 Intake Total 120 Balance 120 - Medications Medications: Current Medications Acetaminophen (Tylenol 325mg Tab) 650 mg PO Q4H PRN PRN Reason: Fever >100.4 F Albuterol/Ipratropium (Duoneb 3 Mg/0.5 Mg (3 Ml) Ud) 3 ml IH Q2H PRN PRN Reason: Shortness of Breath Albuterol/Ipratropium (Duoneb 3 Mg/0.5 Mg (3 Ml) Ud) 3 ml IH [id number] [facility] Last Admin: 06/27/17 07:33 Dose: 3 ml Alprazolam (Xanax) 0.5 mg PO HS PRN; Protocol PRN Reason: Anxiety Last Admin: 06/27/17 00:30 Dose: 0.5 mg Aspirin (Ecotrin) 81 mg PO DAILY [facility] Last Admin: 06/27/17 10:02 Dose: 81 mg Azithromycin (Zithromax 500mg In Ns) 500 mg in 250 mls @ 167 mls/hr IVPB DAILY [facility] PRN Reason: Protocol Last Admin: 06/27/17 12:10 Dose: 167 mls/hr Ceftriaxone Sodium (Rocephin 1 Gram Ivpb) 1 gm in 100 mls @ 100 mls/hr IVPB DAILY [facility] PRN Reason: Protocol Last Admin: 06/27/17 10:02 Dose: 100 mls/hr Methylprednisolone (Solu-Medrol) 40 mg IVP Q12 [facility] Last Admin: 06/27/17 10:02 Dose: 40 mg Ondansetron HCl (Zofran Odt) 4 mg PO Q6H PRN PRN Reason: Nausea/Vomiting Last Admin: 06/26/17 22:00 Dose: 4 mg Oxycodone HCl (Oxycodone Immediate Release Tab) 20 mg PO Q6H PRN PRN Reason: Pain, moderate (4-7) Last Admin: 06/27/17 07:53 Dose: 20 mg Pantoprazole Sodium (Protonix Ec Tab) 20 mg PO DAILY [facility] Last Admin: 06/27/17 10:04 Dose: 20 mg - Labs Labs: 06/27/17 06:51 06/27/17 06:47 - Constitutional Appears: Well, No Acute Distress - Head Exam Head Exam: ATRAUMATIC, NORMAL INSPECTION, NORMOCEPHALIC - Eye Exam Eye Exam: EOMI, Normal appearance - ENT Exam ENT Exam: Mucous Membranes Moist - Respiratory Exam Respiratory Exam: Wheezes (mild), NORMAL BREATHING PATTERN. absent: Decreased Breath Sounds, Rales, Rhonchi, Respiratory Distress - Cardiovascular Exam Cardiovascular Exam: REGULAR RHYTHM, +S1, +S2. absent: Tachycardia, Murmur - GI/Abdominal Exam GI & Abdominal Exam: Soft, Normal Bowel Sounds. absent: Distended, Firm, Tenderness - Extremities Exam Extremities Exam: Normal Inspection. absent: Pedal Edema, Tenderness - Neurological Exam Neurological Exam: Alert, Awake, Oriented x3 - Skin Skin Exam: Dry, Intact, Normal Color, Warm Assessment and Plan - Assessment and Plan (Free Text) Assessment: 62 yo female with PMH of COPD, osteoporosis presents with COPD exacerbation, chronic back pain, polycytemia. Plan: 1. COPD exacerbation - improving - cont duonebs treatments - solu-medrol 40 q12 - abx rocefin and azithromycin 2. chronic back pain - patient has h/o osteoporosis - CT chest showed prominent osteophytic ridge disc complex T11-T12 level with mild to moderate canal compromise and presumed cord compression - currently no neurological complaints - MRI pending - cont pain control with oxycodone - neuro consulted - PT eval pending 3. UTI - leukocytosis without fever - urine cultures positive for klebsiella - cont cetraxone 4. polycytemia - most likely secondary to chronic smoking - improved <Hector Webb S - Last Filed: 06/27/17 17:21> Objective - Vital Signs/Intake and Output Vital Signs (last 24 hours): Temp Pulse Resp BP Pulse Ox 98.7 F 84 20 142/93 H 92 L 06/27/17 08:19 06/27/17 08:19 06/27/17 08:19 06/27/17 08:19 06/27/17 08:19 Intake and Output: 06/27/17 06/27/17 06:59 18:59 Intake Total 120 Balance 120 - Medications Medications: Current Medications Acetaminophen (Tylenol 325mg Tab) 650 mg PO Q4H PRN PRN Reason: Fever >100.4 F Albuterol/Ipratropium (Duoneb 3 Mg/0.5 Mg (3 Ml) Ud) 3 ml IH Q2H PRN PRN Reason: Shortness of Breath Albuterol/Ipratropium (Duoneb 3 Mg/0.5 Mg (3 Ml) Ud) 3 ml IH [id number] [facility] Last Admin: 06/27/17 13:30 Dose: 3 ml Alprazolam (Xanax) 0.5 mg PO HS PRN; Protocol PRN Reason: Anxiety Last Admin: 06/27/17 00:30 Dose: 0.5 mg Aspirin (Ecotrin) 81 mg PO DAILY [facility] Last Admin: 06/27/17 10:02 Dose: 81 mg Azithromycin (Zithromax 500mg In Ns) 500 mg in 250 mls @ 167 mls/hr IVPB DAILY [facility] PRN Reason: Protocol Last Admin: 06/27/17 12:10 Dose: 167 mls/hr Ceftriaxone Sodium (Rocephin 1 Gram Ivpb) 1 gm in 100 mls @ 100 mls/hr IVPB DAILY [facility] PRN Reason: Protocol Last Admin: 06/27/17 10:02 Dose: 100 mls/hr Methylprednisolone (Solu-Medrol) 40 mg IVP Q12 [facility] Last Admin: 06/27/17 10:02 Dose: 40 mg Ondansetron HCl (Zofran Odt) 4 mg PO Q6H PRN PRN Reason: Nausea/Vomiting Last Admin: 06/26/17 22:00 Dose: 4 mg Oxycodone HCl (Oxycodone Immediate Release Tab) 20 mg PO Q6H PRN PRN Reason: Pain, moderate (4-7) Last Admin: 06/27/17 14:49 Dose: 20 mg Pantoprazole Sodium (Protonix Ec Tab) 20 mg PO DAILY [facility] Last Admin: 06/27/17 10:04 Dose: 20 mg - Labs Labs: 06/27/17 06:51 06/27/17 06:47 Assessment and Plan - Assessment and Plan (Free Text) Plan: Pt seen and examined. Agree with above note of resident. Meds and labs reviewed. Waiting for MRI of back. Hx of osteoporosis and on Prolia. COPD is improving. On steriods and neb Rx. N/V is improved. PT evaluation.
[2017-06-28] MEDS: Albuterol-Ipratrop 3 mg / 0.5 (3 ml) UD IH SCH ×3 (01:44→13:14)
[2017-06-28 08:04] VITALS: RESP 18; O2SAT 94
--- NOTE | 2017-06-28 08:53 | MRI ---
PROCEDURE: MR THORACIC SPINE WITHOUT CONTRAST HISTORY: further eval, exam: Thoracic Spine MRI COMPARISON: None available. TECHNIQUE: Multiecho multiplanar sequences were performed through the thoracic spine without the use of intravenous contrast. FINDINGS: ALIGNMENT: Normal thoracic spinal alignment. Normal thoracic kyphosis. VERTEBRA: Vertebral body height are preserved. MARROW: Marrow signal unremarkable. PARASPINAL SOFT TISSUES: Unremarkable. CORD: Unremarkable thoracic cord. No volume loss, signal abnormality or syrinx. DISCS: There is a moderate size central disc herniation at T11-12. This does not produce impingement or compression of the cord. There is disc degeneration a multiple levels with desiccation of the disc material and loss of disc height. OTHER FINDINGS: None. IMPRESSION: There is a moderate size central disc herniation at T11-12. This does not produce impingement or compression of the cord. There is disc degeneration a multiple levels with desiccation of the disc material and loss of disc height.
--- NOTE | 2017-06-28 09:12 | CP.PCM.PN ---
<Esthela Navarro - Last Filed: 06/28/17 12:23> Subjective - Date & Time of Evaluation Date of Evaluation: 06/28/17 Time of Evaluation: 09:10 - Subjective Subjective: PGY-[address] Webb Patient seen and examined at bedside. Patient state that this morning she had nausea with 1 episode of non-bloody emesis. She states her sob has improved. She reports chronic back pain. Patient denies chest pain, fever, chills, d/c, dysuria, numbness or tingling in lower extremities. Objective - Vital Signs/Intake and Output Vital Signs (last 24 hours): Temp Pulse Resp BP Pulse Ox 98.5 F 79 18 154/86 H 94 L 06/28/17 08:03 06/28/17 08:03 06/28/17 08:03 06/28/17 08:03 06/28/17 08:03 Intake and Output: 06/28/17 06/28/17 06:59 18:59 Intake Total 1020 Output Total 650 Balance 370 - Medications Medications: Current Medications Acetaminophen (Tylenol 325mg Tab) 650 mg PO Q4H PRN PRN Reason: Fever >100.4 F Albuterol/Ipratropium (Duoneb 3 Mg/0.5 Mg (3 Ml) Ud) 3 ml IH Q2H PRN PRN Reason: Shortness of Breath Albuterol/Ipratropium (Duoneb 3 Mg/0.5 Mg (3 Ml) Ud) 3 ml IH [id number] [facility] Last Admin: 06/28/17 07:26 Dose: Not Given Alprazolam (Xanax) 0.5 mg PO HS PRN; Protocol PRN Reason: Anxiety Last Admin: 06/27/17 22:37 Dose: 0.5 mg Aspirin (Ecotrin) 81 mg PO DAILY [facility] Last Admin: 06/27/17 10:02 Dose: 81 mg Cefpodoxime Proxetil (Vantin) 100 mg PO Q12 ZAK PRN Reason: Protocol Ondansetron HCl (Zofran Odt) 4 mg PO Q6H PRN PRN Reason: Nausea/Vomiting Last Admin: 06/28/17 04:00 Dose: 4 mg Oxycodone HCl (Oxycodone Immediate Release Tab) 20 mg PO Q6H PRN PRN Reason: Pain, moderate (4-7) Last Admin: 06/27/17 21:50 Dose: 20 mg Pantoprazole Sodium (Protonix Ec Tab) 20 mg PO DAILY ZAK Last Admin: 06/27/17 10:04 Dose: 20 mg - Labs Labs: 06/27/17 06:51 06/27/17 06:47 - Constitutional Appears: No Acute Distress - Head Exam Head Exam: ATRAUMATIC, NORMAL INSPECTION, NORMOCEPHALIC - Eye Exam Eye Exam: EOMI, Normal appearance - ENT Exam ENT Exam: Mucous Membranes Moist - Respiratory Exam Respiratory Exam: Clear to Ausculation Bilateral, NORMAL BREATHING PATTERN. absent: Decreased Breath Sounds, Rales, Rhonchi, Wheezes, Respiratory Distress - Cardiovascular Exam Cardiovascular Exam: REGULAR RHYTHM, +S1, +S2. absent: Tachycardia, Murmur - GI/Abdominal Exam GI & Abdominal Exam: Soft, Tenderness (mild), Normal Bowel Sounds. absent: Distended, Firm, Guarding - Extremities Exam Extremities Exam: Normal Inspection. absent: Pedal Edema, Tenderness - Neurological Exam Neurological Exam: Alert, Awake, Oriented x3 - Skin Skin Exam: Dry, Intact, Normal Color, Warm Assessment and Plan - Assessment and Plan (Free Text) Assessment: 62 yo female with PMH of COPD, osteoporosis presents with COPD exacerbation, chronic back pain, polycytemia. Plan: 1. COPD exacerbation - improving - cont duonebs treatments - solu-medrol discontinued 2. nausea vomiting - zofran prn - most likely 2/2 abx and steroids - stopped steroids and IV abx 2. chronic back pain - patient has h/o osteoporosis - CT chest showed prominent osteophytic ridge disc complex T11-T12 level with mild to moderate canal compromise and presumed cord compression - currently no neurological complaints - Thoracic MRI There is a moderate size central disc herniation at T11-12. This does not produce impingement or compression of the cord. There is disc degeneration a multiple levels with desiccation of the disc material and loss of disc height. - cont pain control with oxycodone - neuro consulted - PT 3. UTI - leukocytosis without fever on admission - urine cultures positive for klebsiella - abx changed to PO cepodoxime 4. polycytemia - most likely secondary to chronic smoking - improved 5. h/o osteoporosis - on prolia <Hector Webb S - Last Filed: 06/28/17 18:03> Objective - Vital Signs/Intake and Output Vital Signs (last 24 hours): Temp Pulse Resp BP Pulse Ox 98.2 F 88 18 112/71 94 L 06/28/17 16:07 06/28/17 16:07 06/28/17 16:07 06/28/17 16:07 06/28/17 16:07 Intake and Output: 06/28/17 06/28/17 06:59 18:59 Intake Total 1020 Output Total 650 Balance 370 - Medications Medications: Current Medications Acetaminophen (Tylenol 325mg Tab) 650 mg PO Q4H PRN PRN Reason: Fever >100.4 F Albuterol/Ipratropium (Duoneb 3 Mg/0.5 Mg (3 Ml) Ud) 3 ml IH Q2H PRN PRN Reason: Shortness of Breath Albuterol/Ipratropium (Duoneb 3 Mg/0.5 Mg (3 Ml) Ud) 3 ml IH [id number] [facility] Last Admin: 06/28/17 13:14 Dose: Not Given Alprazolam (Xanax) 0.5 mg PO HS PRN; Protocol PRN Reason: Anxiety Last Admin: 06/27/17 22:37 Dose: 0.5 mg Aspirin (Ecotrin) 81 mg PO DAILY [facility] Last Admin: 06/28/17 09:47 Dose: 81 mg Cefpodoxime Proxetil (Vantin) 100 mg PO Q12 ZAK PRN Reason: Protocol Last Admin: 06/28/17 09:47 Dose: 100 mg Ondansetron HCl (Zofran Odt) 4 mg PO Q6H PRN PRN Reason: Nausea/Vomiting Last Admin: 06/28/17 04:00 Dose: 4 mg Oxycodone HCl (Oxycodone Immediate Release Tab) 20 mg PO Q6H PRN PRN Reason: Pain, moderate (4-7) Last Admin: 06/27/17 21:50 Dose: 20 mg Pantoprazole Sodium (Protonix Ec Tab) 20 mg PO DAILY [facility] Last Admin: 06/28/17 09:47 Dose: 20 mg - Labs Labs: 06/27/17 06:51 06/27/17 06:47 Assessment and Plan - Assessment and Plan (Free Text) Plan: Pt seen and examined. Above note of resident reviewed and agree with above note. Meds and labs reviewed. Pt feeling better and SOB is improved. Will D/C home. MRI reviewed.
[2017-06-28] MEDS: Pantoprazole 20 mg EC Tab PO SCH (09:47)
[2017-06-28] MEDS ORDERED: Cefpodoxime (Vantin) 100 mg Tab PO SCH (10:00)
--- NOTE | 2017-06-28 12:57 | PN ---
NEUROLOGY FOLLOWUP DATE: CHIEF COMPLAINT: Followup for back pain. SUBJECTIVE: The patient is seen and examined at bedside. No focal weakness in the lower extremities. No bowel or bladder incontinence. MRI of the thoracic spine showed a moderate sized central disk herniation at T11 and T12, but is not impinging the cord or causing compression on the cord. She has arthritis. Her shortness of breath is much better today. No acute events overnight. PAST MEDICAL HISTORY: Coronary artery disease, COPD, esophageal ulcer, peptic ulcer disease, kidney stones. PAST SURGICAL HISTORY: Laminectomy. HOME MEDICATIONS: Reviewed by nurse per reconciliation sheet. SOCIAL HISTORY: Former heavy smoker. Now, smokes occasionally. Social drinker. Denies illicit drug use. FAMILY HISTORY: Osteoporosis. REVIEW OF SYSTEMS: A 14-point review of systems is negative except as per the HPI. PHYSICAL EXAMINATION GENERAL: The patient is sitting up in bed, no acute distress. VITAL SIGNS: Temperature 98.5, pulse rate 79, blood pressure 115/86, respiratory rate of 18, oxygen saturation 96% via room air. HEENT: Atraumatic and normocephalic. PERRLA. Extraocular muscles are intact. NECK: Supple. No JVD. No adenopathy noted. LUNGS: Clear to auscultation. No adventitious sounds. HEART: S1 and S2, normal rate and rhythm. No murmurs, rubs, or gallops. Slight decreased breath sounds bilaterally. NEUROLOGIC: The patient is alert and oriented to person, place, month and year. Speech is fluent without any errors. Cranial nerves II through XII intact. Motor exam, moves all extremities equally. Toes are downgoing. Sensory exam: Light touch, pinprick, proprioception, vibration intact. DTRs are 2+ throughout at the knees and ankles. Coordination: [id number] intact. Gait is deferred for now. LABORATORY DATA: No new labs done today. MRI of the thoracic spine reviewed. It showed a moderate sized central disk herniation in T11 and T12 without cord compromise. ASSESSMENT AND PLAN: This is a 62-year-old woman with past medical history of coronary artery disease, status post stent, chronic obstructive pulmonary disease, esophageal ulcers, came in for chronic obstructive pulmonary disease exacerbation. Initial CAT scan was an over read of T11 and T12 spinal cord compression, but no focal weakness in the lower extremities or cord compromise or any bowel or bladder incontinence. She still has mild thoracic pain with superimposed underlying arthritis. The MRI of the thoracic spine showed a moderate sized central disk herniation in T11 and T12 without any impingement or cord compromise. There are multiple degenerative changes. At this time, we recommend outpatient physical and occupational therapy and continued management of underlying chronic obstructive pulmonary disease exacerbation. Aurelio Quintanilla MD
[2017-06-28 17:07] VITALS: BP 112/71; PULSE 88; TEMP 98.2
== END 2017-06-28 18:51 | disposition home or self-care (01) | DRG 191 ==
LOC: ED 20:51 → ERH 06-25 00:02 → 5RNO 06-25 01:52
PROVIDERS: ADMIT Internal Medicine; ATTEND Internal Medicine Nephrology
DX: J44.1 Chronic obstructive pulmonary disease with (acute) exacerbation (principal); N39.0 Urinary tract infection, site not specified; M51.04 Intervertebral disc disorders with myelopathy, thoracic region; I13.0 Hypertensive heart and chronic kidney disease with heart failure and stage 1 through stage 4 chronic kidney disease, or unspecified chronic kidney disease; K22.10 Ulcer of esophagus without bleeding; I50.9 Heart failure, unspecified; N18.9 Chronic kidney disease, unspecified; D75.1 Secondary polycythemia; I25.10 Atherosclerotic heart disease of native coronary artery without angina pectoris; M47.894 Other spondylosis, thoracic region; N20.0 Calculus of kidney; E87.6 Hypokalemia; B96.1 Klebsiella pneumoniae [K. pneumoniae] as the cause of diseases classified elsewhere; F17.200 Nicotine dependence, unspecified, uncomplicated; K21.0 Gastro-esophageal reflux disease with esophagitis; M81.0 Age-related osteoporosis without current pathological fracture; I25.2 Old myocardial infarction; Z95.5 Presence of coronary angioplasty implant and graft; Z87.11 Personal history of peptic ulcer disease